=== PATIENT | female | born 1945 | race Caucasian/White ===

== ENCOUNTER → 2016-07-26 | Outpatient (CLI) | payer MEDICARE ==
--- NOTE | 2016-07-28 07:53 | MM ---
Reason for exam: screening (asymptomatic). Last mammogram was performed 1 year and 5 months ago. History: Patient is postmenopausal. Took hormonal contraceptives for 4 years. Took estrogen for 8 years. Took progesterone for 8 years. Physical Findings: A clinical breast exam by your physician is recommended on an annual basis and results should be correlated with mammographic findings. MG Screening Mammo w CAD Bilateral CC and MLO view(s) were taken. Prior study comparison: February 24, 2015, bilateral MG screening mammo w CAD. March 15, 2011, bilateral digital screening mammo w/CAD. March 12, 2010, bilateral digital screening mammogram. There are scattered fibroglandular densities. Possible distortion lateral left breast at a middle depth. ASSESSMENT: Incomplete: need additional imaging evaluation, BI-RAD 0 RECOMMENDATION: Special view mammogram of the left breast. If lesion persists on supplemental views, image directed ultrasound is recommended. [facility] will attempt to contact patient to return for supplemental views and ultrasound if indicated.
== END | disposition home or self-care (01) ==
LOC: RADMAMWWP 09:07
PROVIDERS: ATTEND Family Medicine
DX: Z12.31 Encounter for screening mammogram for malignant neoplasm of breast (principal); R92.2 Inconclusive mammogram

== ENCOUNTER → 2016-08-05 | Outpatient (CLI) | payer MEDICARE ==
--- NOTE | 2016-08-06 12:36 | MM ---
Reason for exam: additional evaluation requested from abnormal screening. Last mammogram was performed less than 1 month ago. History: Patient is postmenopausal. Took hormonal contraceptives for 4 years. Took estrogen for 8 years. Took progesterone for 8 years. Physical Findings: Nurse did not find any significant physical abnormalities on exam. MG Work Up Mamm w CAD LT CC, MLO, LM, and CCRM view(s) were taken of the left breast. Prior study comparison: July 26, 2016, bilateral MG screening mammo w CAD. There is no discrete abnormality. These results were verbally communicated with the patient and result sheet given to the patient on 08/05/16. ASSESSMENT: Negative, BI-RAD 1 RECOMMENDATION: Return to routine screening mammogram schedule for both breasts. Back on schedule.
== END | disposition home or self-care (01) ==
LOC: RADMAMWWP 08:53
PROVIDERS: ATTEND Family Medicine
DX: R92.8 Other abnormal and inconclusive findings on diagnostic imaging of breast (principal)

== ENCOUNTER → 2020-08-06 | Outpatient (CLI) | payer MEDICARE, BC ==
--- NOTE | 2020-08-07 10:01 | MM ---
Reason for exam: screening (asymptomatic). Last mammogram was performed 4 years ago. History: Patient is postmenopausal. Took hormonal contraceptives for 4 years. Took estrogen for 8 years. Took progesterone for 8 years. Physical Findings: A clinical breast exam by your physician is recommended on an annual basis and results should be correlated with mammographic findings. MG 3D Screening Mammo W/Cad Bilateral CC and MLO view(s) were taken. Prior study comparison: August 05, 2016, left breast MG work up mamm w CAD LT. July 26, 2016, bilateral MG screening mammo w CAD. The breast tissue is heterogeneously dense. This may lower the sensitivity of mammography. Stable benign calcifications. There is no discrete abnormality. No significant changes when compared with prior studies. ASSESSMENT: Benign, BI-RAD 2 RECOMMENDATION: Routine screening mammogram of both breasts in 1 year.
== END | disposition home or self-care (01) ==
LOC: RADMAMWWP 11:10
PROVIDERS: ATTEND Family Medicine
DX: Z12.31 Encounter for screening mammogram for malignant neoplasm of breast (principal); Z78.0 Asymptomatic menopausal state
CPT/HCPCS: 77063; 77067

== ENCOUNTER 2020-10-05 01:20 | Observation (INO) | payer BC, MEDICARE ==
[2020-10-05] MEDS ORDERED: MORPHINE SULFATE 4 MG/ML SYRINGE IV STA (02:09)
[2020-10-05] MEDS ORDERED: SODIUM CHLORIDE 0.9% 500 ML 500 ML IV STA (02:09)
[2020-10-05] MEDS ORDERED: SODIUM CHLORIDE 0.9% 1,000 ML IV STA (02:09)
--- NOTE | 2020-10-05 02:10 | ED ---
Chest Pain HPI - General Chief Complaint: Back Pain/Injury Stated Complaint: Back pain Time Seen by Provider: 10/05/20 01:38 Source: patient, RN notes reviewed, old records reviewed Mode of arrival: ambulatory Limitations: no limitations - History of Present Illness Initial Comments: This is a 74-year-old female DF for evaluation. Patient coming in with left- sided back pain center back pain with history of heart disease. Patient is concern for heart. States that this pain is persisting going on for about a day or so this is a. The pain was been getting significantly worse. She states she may have been having pain in that side since she had a stress test. MD Complaint: chest pain, other (Left-sided scapular pain) -: days(s) Pain Location: substernal, left chest Pain Radiation: back Severity: moderate Severity scale (1-10): 6 Quality: aching Consistency: constant Improves With: nothing Worsens With: nothing Anginal Symptoms: other (none) Other Symptoms: other (none) Treatments Prior to Arrival: none - Related Data Allergies Allergy/AdvReac Type Severity Reaction Status Date / Time Iodine and Iodide Containing Allergy Unknown Verified 10/05/20 01:35 Produc Sulfa (Sulfonamide Allergy Unknown Verified 10/05/20 01:35 Antibiotics) Review of Systems ROS Statement: Those systems with pertinent positive or pertinent negative responses have been documented in the HPI. ROS Other: All systems not noted in ROS Statement are negative. EKG Findings - EKG Comments: EKG Findings:: EKG is sinus rhythm 84 MD 170 QRS 94 QTC 472 Past Medical History Past Medical History: Heart Failure, Diabetes Mellitus, Hyperlipidemia, Hypertension, Thyroid Disorder History of Any Multi-Drug Resistant Organisms: None Reported Past Surgical History: Cholecystectomy, Coronary Bypass/CABG, Hysterectomy Past Psychological History: No Psychological Hx Reported Smoking Status: Never smoker Past Alcohol Use History: None Reported Past Drug Use History: None Reported General Exam Limitations: no limitations General appearance: alert, in no apparent distress Head exam: Present: atraumatic, normocephalic, normal inspection Eye exam: Present: normal appearance, PERRL, EOMI. Absent: scleral icterus, conjunctival injection, periorbital swelling ENT exam: Present: normal exam, mucous membranes moist Neck exam: Present: normal inspection. Absent: tenderness, meningismus, lymphadenopathy Respiratory exam: Present: normal lung sounds bilaterally. Absent: respiratory distress, wheezes, rales, rhonchi, stridor Cardiovascular Exam: Present: regular rate, normal rhythm, normal heart sounds. Absent: systolic murmur, diastolic murmur, rubs, gallop, clicks GI/Abdominal exam: Present: soft, normal bowel sounds. Absent: distended, tenderness, guarding, rebound, rigid Extremities exam: Present: normal inspection, full ROM, normal capillary refill. Absent: tenderness, pedal edema, joint swelling, calf tenderness Back exam: Present: normal inspection Neurological exam: Present: alert, oriented X3, CN II-XII intact Psychiatric exam: Present: normal affect, normal mood Skin exam: Present: warm, dry, intact, normal color. Absent: rash Course Vital Signs 10/05/20 10/05/20 01:31 04:27 Temperature 97.9 F Pulse Rate 92 83 Respiratory 18 18 Rate Blood Pressure 144/88 115/49 O2 Sat by Pulse 100 97 Oximetry - Reevaluation(s) Reevaluation #1: 10/05/20 02:39 Medical record is reviewed Reevaluation #2: 10/05/20 04:49 Patient still severe chest pain left shoulder pain here in the ER left scapular pain Reevaluation #3: 10/05/20 04:49 Patient is significantly acting concern for his heart Reevaluation #4: 10/05/20 04:49 Patient informed results and questions answered Reevaluation #5: 10/05/20 04:49 Patient understands need for admission secondary to weekend isn't receiving contrast Chest Pain MDM - MDM 74 female with left-sided shoulder pain Or pain chest pain concern for her heart. Patient will be admitted for monitoring of kidney function and cardiac observation Disposition Clinical Impression: Chest pain, Pain of left scapula, Left shoulder pain Disposition: ADMITTED IP TO THIS HOSP Condition: Fair Is patient prescribed a controlled substance at d/c from ED?: No
[2020-10-05 02:40] LABS: Basophils # (A) 0.1 k/uL (0-0.2); Basophils % (A) 1 %; Eosinophils # (A) 0.3 k/uL (0-0.7); Eosinophils % (A) 2 %; HCT 30.9 % (34.0-46.0); HGB 9.8 gm/dL (11.4-16.0); Hypochromasia Slight; Lymphocytes # (A) 3.1 k/uL (1.0-4.8); Lymphocytes % (A) 26 %; MCH 18.8 pg (25.0-35.0); MCHC 31.8 g/dL (31.0-37.0); Mean Platelet Volume 6.9; Microcytosis Marked; Monocytes # (A) 0.8 k/uL (0-1.0); Monocytes % (A) 6 %; Neutrophils # (A) 7.4 k/uL (1.3-7.7); Neutrophils % (A) 63 %; Platelet Count 264 k/uL (150-450); RBC 5.24 m/uL (3.80-5.40); RDW 14.9 % (11.5-15.5); WBC 11.8 k/uL (3.8-10.6)
[2020-10-05 03:00] LABS: Albumin 4.6 g/dL (3.5-5.0); Calcium 9.5 mg/dL (8.4-10.2); Magnesium 1.9 mg/dL (1.6-2.3); Phosphorus 4.1 mg/dL (2.5-4.5); Potassium 4.1 mmol/L (3.5-5.1); Total Bilirubin 0.5 mg/dL (0.2-1.3)
--- NOTE | 2020-10-05 03:18 | XR ---
EXAMINATION TYPE: XR chest 2V DATE OF EXAM: 10/05/2020 COMPARISON: 03/26/2013 HISTORY: Chest pain TECHNIQUE: FINDINGS: Heart is normal. Lungs are clear of consolidation. There is minimal linear density at the l namrata bases. Thoracic aorta is atheromatous. There are sternal wires. There are no hilar masses. Bony t horax is intact. IMPRESSION: Minimal subsegmental atelectasis appears new compared to old exam. No heart failure.
[2020-10-05] MEDS ORDERED: methylPREDNISolone SOD SUCCI 125 MG/2 ML VIAL IV STA (03:44)
[2020-10-05] MEDS ORDERED: diphenhydrAMINE 50 MG/ML 1 ML VIAL IVP STA (03:44)
[2020-10-05] MEDS ORDERED: FAMOTIDINE 20 MG/2 ML VIAL IV STA (03:44)
[2020-10-05] MEDS ORDERED: MORPHINE SULFATE 4 MG/ML SYRINGE IV PRN (03:45)
[2020-10-05] MEDS ORDERED: SODIUM CHLORIDE 0.9% 1,000 ML IV SCH (03:45)
[2020-10-05] MEDS ORDERED: NITROGLYCERIN SL TABS 0.4 MG TAB SUBLINGUAL PRN (03:45)
[2020-10-05] MEDS ORDERED: HYDROmorphone 1 MG/ML 1 ML SYRINGE IVP STA (04:29)
--- NOTE | 2020-10-05 04:31 | CT ---
EXAMINATION TYPE: CT abdomen pelvis w con DATE OF EXAM: 10/05/2020 COMPARISON: None HISTORY: severe scapular/chest pain. no prior on PACS. iso 370/80ml. Pt. premedicated for iodine al lergy prior to scan. CT DLP: mGycm Automated exposure control for dose reduction was used. CONTRAST: Performed with IV Contrast, patient injected with 80ml mL of Isovue 370. There is some mild atelectasis at the lung bases. Heart is top normal in size. There is no pericardia l effusion. There is no pleural effusion. Liver spleen stomach pancreas appear intact. The bile ducts are not dilated. There is no adrenal mass. Kidneys show satisfactory contrast opacification. There is no hydronephrosi s. Ureters are not dilated. There is no retroperitoneal adenopathy. The bladder distends smoothly. Th ere is no inguinal hernia. There is no free fluid in the pelvis. There is no pelvic mass. There are a few sigmoid diverticula. There is no diverticulitis. Appendix appears normal. There is no mesenteric edema. There is no ascites or free air. There is no bowel obstruction. The lumbar vertebra show disc space narrowing at L2-3. There is minimal L2-3 retrolisthesis. There is no compression fracture. The bony pelvis is intact. The hip joints are intact. There is mild narrowi ng left hip joint space. IMPRESSION: There are a few sigmoid diverticula. No diverticulitis. No sign of acute abdomen and pelvis. There is some mild atelectasis at the lung bases.
--- NOTE | 2020-10-05 04:34 | CT ---
EXAMINATION TYPE: CT angio chest DATE OF EXAM: 10/05/2020 COMPARISON: None HISTORY: severe scapular/chest pain. no prior on PACS. iso 370/80ml. Pt. premedicated for iodine al lergy prior to scan. CT DLP: 2076 mGycm Automated exposure control for dose reduction was used. CONTRAST: Performed with IV Contrast, patient injected with 80ml mL of Isovue 370. There are 3-D post processed images. Heart is enlarged. There is some mild atelectasis at the posterior lung bases. There is no pericardia l effusion. There is no pleural effusion. There is no evidence of a pulmonary mass. There is no mediastinal adenopathy. There are no hilar masses. There is normal contrast opacification of the pulmonary arteries. There are no filling defects. The thoracic spine is intact. There is no c ompression fracture. Sternum is intact. There are sternal wires. IMPRESSION: No evidence of pulmonary embolism. No evidence of aortic aneurysm or dissection. Ascending aorta gil ures 3.3 cm. Mild atelectasis at the lung bases.
[2020-10-05] MEDS ORDERED: HYDROmorphone 1 MG/ML 1 ML SYRINGE IVP PRN (04:48)
[2020-10-05] MEDS ORDERED: LORazepam 2 MG/ML INJ IV PRN (04:48)
[2020-10-05 06:07] LABS: Basophils # (A) 0.1 k/uL (0-0.2); Basophils % (A) 1 %; Eosinophils # (A) 0.1 k/uL (0-0.7); Eosinophils % (A) 1 %; HCT 28.9 % (34.0-46.0); HGB 9.2 gm/dL (11.4-16.0); Hypochromasia Moderate; Lymphocytes # (A) 1.2 k/uL (1.0-4.8); Lymphocytes % (A) 15 %; MCHC 31.8 g/dL (31.0-37.0); MCV 59.9 fL (80.0-100.0); Mean Platelet Volume 6.9; Microcytosis Marked; Monocytes # (A) 0.2 k/uL (0-1.0); Monocytes % (A) 3 %; Neutrophils # (A) 6.1 k/uL (1.3-7.7); Neutrophils % (A) 80 %; Platelet Count 212 k/uL (150-450); RBC 4.82 m/uL (3.80-5.40); RDW 14.9 % (11.5-15.5); WBC 7.7 k/uL (3.8-10.6)
[2020-10-05 06:28] LABS: Albumin 3.9 g/dL (3.5-5.0); Calcium 8.8 mg/dL (8.4-10.2); Potassium 4.2 mmol/L (3.5-5.1); Total Bilirubin 0.5 mg/dL (0.2-1.3); Total Protein 6.9 g/dL (6.3-8.2)
[2020-10-05 07:24] LABS: Glucose,Whole Blood 206 mg/dL (75-99)
[2020-10-05 07:40] VITALS: BP 102/65; PULSE 81; RESP 14; TEMP 97.8
--- NOTE | 2020-10-05 10:07 | XR ---
Cervical spine HISTORY: Pain 5 views of the cervical spine There is multilevel facet arthropathy change present. Patient is post median sternotomy. Oblique imag es show some possible foraminal encroachment on the right at C6-7, on the left at C4-5, C5-6. There i s multilevel spondylosis. Minimal anterolisthesis grade 1 C4-5. Loss of disc height present C5-6 and C6-7. Cervical vertebral bodies show preserved height. Reduced bone mineralization is present. Prever tebral soft tissues are normal. IMPRESSION: Degenerative disc disease and facet arthropathy.
--- NOTE | 2020-10-05 10:08 | XR ---
Thoracic spine HISTORY: Back pain 3 views of the thoracic spine There is a spinal curvature. Bone mineralization is reduced. Thoracic vertebral bodies show preserved height. There is multilevel spondylosis. Patient is post median sternotomy. Some loss of disc height present at intervertebral levels in the midthoracic spine. IMPRESSION: Degenerative disc disease, osteopenia. Mild spinal curvature.
[2020-10-05 11:24] LABS: Glucose,Whole Blood 308 mg/dL (75-99)
[2020-10-05] MEDS ORDERED: amLODIPine 10 MG TAB PO SCH (12:45)
--- NOTE | 2020-10-05 12:49 | P.HPIM ---
History of Present Illness H&P Date: 10/05/20 History of present illness This is a 74-year-old patient of Dr. Soha Carrion with a past medical history significant for heart failure, diabetes mellitus, hyperlipidemia, hypertension, hypothyroidism, coronary artery disease with coronary bypass back in 1995 with a 1 vessel CABG. He follows with Dr. Swain for cardiology. She recently had a stress test and echo done last week. Results are unknown at this time. Patient states that she had chest pain which was the reason to have the echo and stress test however after the echo on 1 states the chest pain seemed to increase. Patient also has been having shoulder and back pain that has been worsening over the last week. Patient states that the pain worsens with exertion however she has not had any recent injury and no spine workup previously. Patient presented to the emergency room complaining of left sided back pain since her back pain with history of heart disease. Patient states that the pain was resistance going on for about a day or so. However significantly getting worse prompting her to come to the emergency room. At this time patient is found resting comfortably in bed in no acute distress. She continues to have left shoulder pain radiating to the mid back. Denies any shortness of breath or palpitations. Patient states that she has not had any chest pain or jaw pain. T of the abdomen shows a few sigmoid diverticulitis, no diverticulitis, no acute abdominal or pelvis. Mild atelectasis at lung bases. CTA impression no evidence of pulmonary embolism. No evidence of aortic aneurysm or dissection. Ascending order measures 3.3 cm. Mild atelectasis at lung bases. Cervical spine x-ray shows degenerative disc disease and facet arthropathy. Thoracic spine shows distended discussed disease, osteopenia, mild spinal curvature. Review Of Systems: Constitutional: No fever, no chills, no night sweats. No weight change. No weakness, fatigue or lethargy. No daytime sleepiness. EENT: No headache. No blurred vision or double vision, no loss of vision. No loss of Hearing, no ringing in the ears, no dizziness. No nasal drainage or congestion. No epistaxis. No sore throat. Lungs: No shortness of breath, cough, no sputum production. No wheezing. Cardiovascular: reports chest pain, no lower extremity edema. No palpitations. No paroxysmal nocturnal dyspnea. No orthopnea. No lightheadedness or dizziness. No syncopal episodes. Abdominal: no abdominal discomfort. No nausea, vomiting. no diarrhea. No constipation. No bloody or tarry stools. no loss of appetite. Genitourinary: No dysuria, increased frequency, urgency. No urinary retention. Musculoskeletal: Reports left shoulder pain leading to since her back. No myalgias. No muscle weakness, no gait dysfunction, no frequent falls. No neck pain. Integumentary: No wounds, no lesions. No rash or pruritus. No unusual bruising. No change in hair or nails. Neurologic: No aphasia. No facial droop. No change in mentation. No head injury. No headache. No paralysis. No paresthesia. Psychiatric: No depression. No anxiety. No mood swings. Endocrine: No abnormal blood sugars. No weight change. No excessive sweating or thirst. Social history: Patient is , a retired building supervisor, she lives at home with her , denies EtOH or illicit drug abuse, she is a former smoker quit many years ago smoking approximately a pack a day. Patient denies using cane or walker CPAP machine at home. Family history: Patient is 1 of 1 18 children. 13 are living and healthy, 4 brothers from AIDS, aneurysm and 2 during childhood. Mother at 85 related to stroke, dad at 62 related to lung cancer, she has 2 children son is healthy, and daughter has history of brain aneurysm. Physical examination General Appearance: Alert, cooperative, no distress, appears stated age. Neck HEENT: Supple, no lymphadenopathy, no thyroid enlargement, no carotid bruits. Lungs: Clear to auscultation without crackles or wheezes no rhonchi, no deformity. Chest Wall: Chest wall normal expansion with deep inspiration no tenderness and no deformity was found on exam, no costochondral pain or discomfort. Heart: Regular rate and rhythm, S1, S2 normal, no murmur, rub or gallop. Back: Symmetric, no curvature, ROM normal, no CVA tenderness. Abdomen: Soft, non-tender, no rebound or rigidity, no hepatosplenomegaly. Extremities: Extremities normal, atraumatic, no cyanosis or edema. Pulses: 2+ and symmetric. Skin: Skin color, texture, tugor normal, no rashes or lesions. Neurologic: Alert oriented x3 cranial nerves II through XII intact, no motor deficit, no abnormal balance or gait Assessment and plan 1. Atypical chest pain. Consult cardiology. Patient recently had a echo and stress test last week. More than likely this is related to shoulder and back pain more than cardiac. 2. Left shoulder pain radiating to center back. Cervical and thoracic spine ordered results noted above. 3. Diabetes mellitus. Metformin 500 mg by mouth 4. Heart failure. Losartan hydrochlorothiazide 100-25 mg tab 5. Hyperlipidemia. Lovastatin 40 mg by mouth 6. Hypertension. Norvasc 10 mg by mouth daily 7. Hypothyroidism. Levothyroxine 25 MCG by mouth daily 8. Coronary artery disease history of coronary bypass in 1995 1 vessel, aspirin 325 9. GI prophylaxis: Protonix 10. DVT prophylaxis: Ambulation Discharge plan: Patient will be discharged today if cleared by cardiology. Impression and plan of care have been directed as dictated by the signing physician. Jane Capone nurse practitioner acting as scribe for signing physician. Past Medical History Past Medical History: Heart Failure, Diabetes Mellitus, Hyperlipidemia, Hypertension, Thyroid Disorder History of Any Multi-Drug Resistant Organisms: None Reported Past Surgical History: Cholecystectomy, Coronary Bypass/CABG, Hysterectomy Additional Past Surgical History / Comment(s): 1995 cabg 1 vessel. Past Anesthesia/Blood Transfusion Reactions: No Reported Reaction Additional Past Anesthesia/Blood Transfusion Reaction / Comment(s): no blood transfusions. Past Psychological History: No Psychological Hx Reported Smoking Status: Former smoker Past Alcohol Use History: None Reported Additional Past Alcohol Use History / Comment(s): pt states it has been years since she last smoked. Past Drug Use History: None Reported Medications and Allergies Home Medications Medication Instructions Recorded Confirmed Type Aspirin EC [Ecotrin] 325 mg PO DAILY@119910/05/20 10/05/20 History Levothyroxine Sodium [Synthroid] 25 mcg PO DAILY 10/05/20 10/05/20 History Losartan/Hydrochlorothiazide 1 tab PO DAILY@119910/05/20 10/05/20 History [Losartan-Hctz 100-25 mg Tab] Lovastatin [Mevacor] 40 mg PO DAILY@119910/05/20 10/05/20 History Multivitamins, Thera [Multivitamin 1 tab PO DAILY 10/05/20 10/05/20 History (formulary)] amLODIPine [Norvasc] 10 mg PO DAILY 10/05/20 10/05/20 History metFORMIN HCL [Glucophage] 500 mg PO DAILY@1200 10/05/20 10/05/20 History Allergies Allergy/AdvReac Type Severity Reaction Status Date / Time Iodine and Iodide Containing Allergy Unknown Verified 10/05/20 10:17 Produc Sulfa (Sulfonamide Allergy Unknown Verified 10/05/20 10:17 Antibiotics) Physical Exam Vitals: Vital Signs Temp Pulse Pulse Resp BP BP Pulse Ox 10/05/20 07:00 97.8 F 81 14 102/65 91 L 10/05/20 05:28 98.2 F 87 18 98/55 92 L 10/05/20 04:27 83 18 115/49 97 10/05/20 01:31 97.9 F 92 18 144/88 100 Intake and Output 10/04/20 10/05/20 10/05/20 22:59 06:59 14:59 Other: # Voids 1 Weight 63.503 kg 63.503 kg Results CBC & Chem 7: 10/05/20 05:44 10/05/20 05:44 Labs: Abnormal Lab Results - Last 24 Hours (Table) 10/05/20 10/05/20 10/05/20 Range/Units 02:21 02:21 05:44 WBC 11.8 H (3.8-10.6) k/uL Hgb 9.8 L 9.2 L (11.4-16.0) gm/dL Hct 30.9 L 28.9 L (34.0-46.0) % MCV 59.0 L 59.9 L (80.0-100.0) fL MCH 18.8 L 19.0 L (25.0-35.0) pg BUN 32 H (7-17) mg/dL Creatinine 1.41 H (0.52-1.04) mg/dL Glucose 132 H (74-99) mg/dL POC Glucose (mg/dL) (75-99) mg/dL AST 40 H (14-36) U/L Creatine Kinase 137 H (30-135) U/L 10/05/20 10/05/20 10/05/20 Range/Units 05:44 07:22 11:22 WBC (3.8-10.6) k/uL Hgb (11.4-16.0) gm/dL Hct (34.0-46.0) % MCV (80.0-100.0) fL MCH (25.0-35.0) pg BUN 27 H (7-17) mg/dL Creatinine 1.15 H (0.52-1.04) mg/dL Glucose 180 H (74-99) mg/dL POC Glucose (mg/dL) 206 H 308 H (75-99) mg/dL AST (14-36) U/L Creatine Kinase (30-135) U/L Thrombosis Risk Factor Assmnt - Choose All That Apply Any of the Below Risk Factors Present?: Yes Each Factor Represents 1 point: Obesity (BMI >25) Other Risk Factors: Yes Each Risk Factor Represents 2 Points: Age 61-74 years Other congenital or acquired thrombophilia - If yes, enter type in comment: No Thrombosis Risk Factor Assessment Total Risk Factor Score: 3 Thrombosis Risk Factor Assessment Level: Moderate Risk
--- NOTE | 2020-10-05 12:50 | P.DS ---
Providers Date of admission: 10/05/20 03:45 Attending physician: Freddy Barrios Consults: 10/05/20 03:45 Consult Physician Urgent Consulting Provider: Bull Berrios Consult Reason/Comments: cp Do you want consulting provider notified?: Yes Primary care physician: [facility] Course: History of present illness This is a 74-year-old patient of Dr. Soha Carrion with a past medical history significant for heart failure, diabetes mellitus, hyperlipidemia, hypertension, hypothyroidism, coronary artery disease with coronary bypass back in 1995 with a 1 vessel CABG. He follows with Dr. Swain for cardiology. She recently had a stress test and echo done last week. Results are unknown at this time. Patient states that she had chest pain which was the reason to have the echo and stress test however after the echo on 1 states the chest pain seemed to increase. Patient also has been having shoulder and back pain that has been worsening over the last week. Patient states that the pain worsens with exertion however she has not had any recent injury and no spine workup previously. Patient presented to the emergency room complaining of left sided back pain since her back pain with history of heart disease. Patient states that the pain was resistance going on for about a day or so. However significantly getting worse prompting her to come to the emergency room. At this time patient is found resting comfortably in bed in no acute distress. She continues to have left shoulder pain radiating to the mid back. Denies any shortness of breath or palpitations. Patient states that she has not had any chest pain or jaw pain. T of the abdomen shows a few sigmoid diverticulitis, no diverticulitis, no acute abdominal or pelvis. Mild atelectasis at lung bases. CTA impression no evidence of pulmonary embolism. No evidence of aortic aneurysm or dissection. Ascending order measures 3.3 cm. Mild atelectasis at lung bases. Cervical spine x-ray shows degenerative disc disease and facet arthropathy. Thoracic spine shows distended discussed disease, osteopenia, mild spinal curvature. Discharge diagnosis 1. Atypical chest pain. 2. Left shoulder pain radiating to center back. 3. Diabetes mellitus. 4. Heart failure. 5. Hyperlipidemia 6. Hypertension. 7. Hypothyroidism. 8. Coronary artery disease history of coronary bypass in 1995 1 vessel, Discharge physician: Home with self-care Impression and plan of care have been directed as dictated by the signing physician. Jane Capone nurse practitioner acting as scribe for signing physician. Cc: Dr.T. Neely Patient Condition at Discharge: Fair Plan - Discharge Summary Discharge Rx Participant: No New Discharge Prescriptions: Continue Aspirin EC [Ecotrin] 325 mg PO DAILY@1200 Lovastatin [Mevacor] 40 mg PO DAILY@1200 Losartan/Hydrochlorothiazide [Losartan-Hctz 100-25 mg Tab] 1 tab PO DAILY@1200 Multivitamins, Thera [Multivitamin (formulary)] 1 tab PO DAILY metFORMIN HCL [Glucophage] 500 mg PO DAILY@1200 amLODIPine [Norvasc] 10 mg PO DAILY Levothyroxine Sodium [Synthroid] 25 mcg PO DAILY Discharge Medication List Aspirin EC [Ecotrin] 325 mg PO DAILY@119910/05/20 [History] Levothyroxine Sodium [Synthroid] 25 mcg PO DAILY 10/05/20 [History] Losartan/Hydrochlorothiazide [Losartan-Hctz 100-25 mg Tab] 1 tab PO DAILY@1200 10/05/20 [History] Lovastatin [Mevacor] 40 mg PO DAILY@119910/05/20 [History] Multivitamins, Thera [Multivitamin (formulary)] 1 tab PO DAILY 10/05/20 [History] amLODIPine [Norvasc] 10 mg PO DAILY 10/05/20 [History] metFORMIN HCL [Glucophage] 500 mg PO DAILY@119910/05/20 [History] Follow up Appointment(s)/Referral(s): Juan Swain MD [STAFF PHYSICIAN] - 1 Week Irving Neely MD [Primary Care Provider] - 1-2 days Patient Instructions/Handouts: Back Pain (ED) Discharge Disposition: HOME SELF-CARE
--- NOTE | 2020-10-05 13:09 | CONS ---
CONSULTATION HISTORY OF PRESENT ILLNESS: Jenni castellon is a 74-year-old lady that is admitted to hospital with chest pain. The patient has had interscapular chest discomfort and precordial pain that is mild intensity going on for the last several weeks. She has been evaluated by Dr. Swain in our office, underwent a stress test and echocardiogram. I do not have the results but she was told the echo looks normal. EKG on this admission shows sinus rhythm with nonspecific ST-T wave changes. She has had 3 sets of cardiac enzymes that are all within normal limits. CT scan of the chest was negative for pulmonary embolism. The patient's chest discomfort is sharp, atypical, probably musculoskeletal. She can go home and follow up with Dr. Swain in the office. PAST MEDICAL HISTORY: Past medical history significant for hypertension, diabetes, dyslipidemia. CURRENT MEDICATIONS: Include aspirin, Synthroid, losartan, Mevacor, Norvasc, and Glucophage. ALLERGIES: IV DYE AND SULFA. FAMILY HISTORY: Negative for premature coronary artery disease. SOCIAL HISTORY: Negative for smoking, EtOH abuse, or drug abuse. REVIEW OF SYSTEMS: HEENT is unremarkable. CARDIAC as described above. RESPIRATORY negative. GI negative. : Negative. ALLERGY/IMMUNOLOGY: Negative. SKIN negative. MUSCULOSKELETAL negative. ENDOCRINE negative. DERM: Negative. CONSTITUTIONAL: Negative. ONCOLOGICAL negative. Rest of the system review is not relevant. EXAM: Comfortable at rest. Vital signs are stable. NECK: There is no jugular venous distention. Carotid upstroke is normal. There is no bruit. CHEST exam reveals good air entry bilaterally. HEART exam reveals first and second heart sounds. No gallop. No murmur. No rub. ABDOMEN is soft, nontender. Examination of EXTREMITIES did not reveal edema. Peripheral pulses are felt. LABORATORY DATA: Labs show that the hemoglobin is 9.2, potassium is 4.2, creatinine is 1.1. Troponins are negative. ASSESSMENT: Atypical chest pain. Exact etiology is unclear. The patient is stable for discharge. Followup with Dr. Swain to follow the stress test and echo results in the outpatient setting. MMODL / SCOTTIEN: [id number] /
[2020-10-06] MEDS ORDERED: LEVOTHYROXINE 25 MCG TAB PO SCH (06:30)
[2020-10-06] MEDS ORDERED: PANTOPRAZOLE 40 MG TABLET PO SCH (07:30)
[2020-10-06] MEDS ORDERED: MULTIVITAMINS, THERA 1 EACH TAB PO SCH (09:00)
[2020-10-06] MEDS ORDERED: ASPIRIN 325 MG TAB PO SCH ×2 (09:00→12:00)
[2020-10-06] MEDS ORDERED: ATORVASTATIN 10 MG TAB PO SCH (12:00)
[2020-10-06] MEDS ORDERED: metFORMIN 500 MG TAB PO SCH (12:00)
[2020-10-06] MEDS ORDERED: LOSARTAN-HCTZ 50-12.5 MG 1 EACH TAB PO SCH (12:00)
== END 2020-10-05 12:29 | disposition home or self-care (01) ==
LOC: EC 01:20 → 6NMEDSUR 03:45
PROVIDERS: ADMIT Internal Medicine Geriatric Medicine; ATTEND Internal Medicine Geriatric Medicine
DX: R07.89 Other chest pain (principal); M25.512 Pain in left shoulder; I25.10 Atherosclerotic heart disease of native coronary artery without angina pectoris; I11.0 Hypertensive heart disease with heart failure; I50.9 Heart failure, unspecified; E11.9 Type 2 diabetes mellitus without complications; E78.5 Hyperlipidemia, unspecified; K57.30 Diverticulosis of large intestine without perforation or abscess without bleeding; J98.11 Atelectasis; M47.812 Spondylosis without myelopathy or radiculopathy, cervical region; M50.30 Other cervical disc degeneration, unspecified cervical region; M85.88 Other specified disorders of bone density and structure, other site; E03.9 Hypothyroidism, unspecified; M43.8X4 Other specified deforming dorsopathies, thoracic region; E66.9 Obesity, unspecified; Z68.29 Body mass index [BMI] 29.0-29.9, adult; Z79.82 Long term (current) use of aspirin; Z79.84 Long term (current) use of oral hypoglycemic drugs; Z79.890 Hormone replacement therapy; Z79.899 Other long term (current) drug therapy; Z88.2 Allergy status to sulfonamides; Z91.041 Radiographic dye allergy status; Z90.49 Acquired absence of other specified parts of digestive tract; Z90.710 Acquired absence of both cervix and uterus; Z95.1 Presence of aortocoronary bypass graft; Z87.891 Personal history of nicotine dependence; Z83.1 Family history of other infectious and parasitic diseases; Z82.3 Family history of stroke; Z80.1 Family history of malignant neoplasm of trachea, bronchus and lung; Z82.49 Family history of ischemic heart disease and other diseases of the circulatory system
CPT/HCPCS: 99285; 36415; 93005; 85379; 83880; 80053; 82550; 83735; 84100; 84484; 85025; 72072; 72050; 71046; 71275; 74177; G0378; J2270; J1200; J2930; J1170; Q9967